=== PATIENT | male | born 1985 | race Caucasian/White ===

== ENCOUNTER 2021-03-20 03:35 | Emergency (ER) | payer SELFPAY ==
[~2021-03-20] VITALS: Ht 167.6 cm; Wt 64.4 kg
[2021-03-20 03:41] VITALS: BP 192/129
[2021-03-20 04:06] VITALS: BP 192/129
--- NOTE | 2021-03-20 04:06 | NUR ---
PT SEEN AND ASSESSED BY GRACIELA. NO NURSING INTERVENTIONS NEEDED AT THIS TIME
--- NOTE | 2021-03-20 04:07 | NUR ---
PATIENT BIB [facility] [employer]. PATIENT EXAMINED BY . PATIENT MEDICALLY CLEARED AND RELEASED IN CUSTODY IN STABLE CONDITION. ORIGINAL PRE-BOOK FORM GIVEN TO OFFICER.
== END 2021-03-20 04:07 ==
LOC: MED 03:35
DX: I10 Essential (primary) hypertension (principal); Z02.89 Encounter for other administrative examinations
CPT/HCPCS: 99283